=== PATIENT | female | born 1995 | race Two or more races ===

== ENCOUNTER 2016-11-05 09:15 | Inpatient (IN) | payer MEDICAID ==
[2016-11-12 11:25] LABS: ABSOLUTE EOSINOPHILS # (AUTO) 0.1 10^3/uL (0.0-0.6); ABSOLUTE LYMPHOCYTES (AUTO) 2.3 10^3/uL (0.5-4.7); ABSOLUTE MONOCYTES (AUTO) 0.7 10^3/uL (0.1-1.4); ABSOLUTE NEUT (AUTO) 6.7 10^3/uL (1.7-8.2); BASOPHILS % (AUTO) 0.2 % (0-2); EOSINOPHILS % (AUTO) 0.8 % (0-6); HEMATOCRIT 31.7 % (36.0-47.0); HEMOGLOBIN 10.7 g/dL (12.0-15.5); HGB HCT DIFFERENCE 0.4; LYMPHOCYTES % (AUTO) 23.3 % (13-45); MEAN CORPUSCULAR HEMOGLOBIN 30.4 pg (27.0-33.4); MEAN CORPUSCULAR HGB CONC 33.6 g/dL (32.0-36.0); MEAN CORPUSCULAR VOLUME 91 fl (80-97); MONOCYTES % (AUTO) 7.6 % (3-13); RED BLOOD COUNT 3.51 10^6/uL (3.72-5.28); RED CELL DISTRIBUTION WIDTH 13.4 % (11.5-14.0); SEGMENTED NEUTROPHILS % (AUTO) 68.1 % (42-78); WHITE BLOOD COUNT 9.8 10^3/uL (4.0-10.5)
[2016-11-12 11:40] LABS: APPEARANCE,URINE CLOUDY; BILIRUBIN,URINE NEGATIVE (NEGATIVE); CALCIUM OXALATE CRYSTALS,URINE MANY /HPF; GLUCOSE, URINE NEGATIVE (NEGATIVE); KETONES,URINE NEGATIVE (NEGATIVE); LEUKOCYTE ESTERASE,URINE TRACE (NEGATIVE); NITRITE,URINE NEGATIVE (NEGATIVE); PROTEIN,URINE 30 mg/dL (NEGATIVE)
[2016-11-12 11:49] LABS: URINE BARBITURATES SCREEN NEGATIVE; URINE METHADONE SCREEN NEGATIVE; URINE OPIATES LOW NEGATIVE; URINE PHENCYCLIDINE SCREEN NEGATIVE
[2016-11-13] MEDS ORDERED: RINGERS SOLUTION,LACTATED 1,000 ML IV PRN (05:00)
[2016-11-13] MEDS ORDERED: CEFAZOLIN 2 GM/D5W RTU 2 GM/50 ML RTUPB IV PRN (05:00)
[2016-11-13] MEDS ORDERED: LIDOCAINE 0.5% INJ-PF (5 MG/ML) 50 ML SDV SUBCUT PRN (05:00)
[2016-11-13] MEDS ORDERED: LACTATED RINGERS 1000 ML IV PRN (05:00)
[2016-11-13] MEDS ORDERED: OXYTOCIN 10 UNIT/ML VIAL ONE (08:55)
[2016-11-13] MEDS ORDERED: ONDANSETRON HCL INJ/PF 4 MG/2 ML SDV ONE (08:56)
[2016-11-13] MEDS ORDERED: OXYTOCIN/NORMAL SALINE 20 UNIT/1,000 ML RTUINJ ONE ×2 (08:56→11:23)
[2016-11-13] MEDS ORDERED: FENTANYL CITRATE INJ/PF 100 MCG/2 ML AMPUL ONE (08:56)
[2016-11-13] MEDS ORDERED: MORPHINE SULFATE 10 MG/ML INJ ONE (08:56)
[2016-11-13] MEDS ORDERED: MIDAZOLAM 2 MG/2 ML INJ ONE (08:57)
[2016-11-13] MEDS ORDERED: LIDOCAINE 2% INJ-PF (20 MG/ML) 10 ML AMPUL ONE (09:35)
[2016-11-13] MEDS ORDERED: FENTANYL CITRATE INJ/PF 250 MCG/5 ML AMPULE ONE (09:56)
[2016-11-13] MEDS ORDERED: METHYLERGONOVINE MALEATE INJ/PF 0.2 MG/1 ML AMPULE ONE (10:01)
[2016-11-13] MEDS ORDERED: OXYCODONE-ACETAMINOPHEN 5-325 MG TABLET PO PRN ×3 (10:14→13:00)
[2016-11-13] MEDS ORDERED: FENTANYL CITRATE INJ/PF 100 MCG/2 ML AMPUL IV PRN ×3 (10:14)
[2016-11-13] MEDS ORDERED: MEPERIDINE HCL/PF INJ 25 MG/1 ML DISP.SYRIN IV PRN (10:14)
[2016-11-13] MEDS ORDERED: PROMETHAZINE HCL INJ 25 MG/1 ML VIAL IV PRN ×3 (10:14→12:51)
[2016-11-13] MEDS ORDERED: DIPHENHYDRAMINE HCL 50 MG/ML VIAL IV PRN (10:14)
[2016-11-13] MEDS ORDERED: MORPHINE SULFATE 10 MG/ML INJ IV PRN (10:14)
[2016-11-13] MEDS ORDERED: PROPOFOL INJ 200 MG/20 ML VIAL IV ONE (10:33)
[2016-11-13] MEDS ORDERED: ACETAMINOPHEN 100 ML IV ONE (10:38)
[2016-11-13] MEDS ORDERED: PROMETHAZINE HCL INJ 25 MG/1 ML VIAL ONE ×2 (11:21→12:44)
[2016-11-13] MEDS: HYDROMORPHONE HCL INJ/PF 2 MG/ML AMPULE ONE ×2 (11:23→11:38)
[2016-11-13] MEDS ORDERED: OXYTOCIN/NORMAL SALINE 20 UNIT/1,000 ML RTUINJ INJ PRN (12:53)
[2016-11-13] MEDS ORDERED: MEASLES,MUMPS&RUBELLA VACC/PF 0.5 ML VIAL SUBCUT PRN (13:00)
[2016-11-13] MEDS ORDERED: HYDROMORPHONE HCL INJ/PF 2 MG/ML AMPULE IV PRN (13:00)
[2016-11-13] MEDS ORDERED: PROMETHAZINE HCL INJ 25 MG/1 ML VIAL IM PRN (13:00)
[2016-11-13] MEDS ORDERED: DIPH/PERTUSS(ACELL)/TETANUS VAC/PF 0.5 ML SYR (>=10YO) IM PRN (13:00)
[2016-11-13] MEDS ORDERED: ACETAMINOPHEN 325 MG TABLET PO PRN (13:00)
[2016-11-13] MEDS ORDERED: SIMETHICONE 80 MG TAB.CHEW PO PRN (13:00)
[2016-11-13] MEDS ORDERED: SUCCINYLCHOLINE CHLORIDE INJ 200 MG/10 ML VIAL ONE (16:50)
[2016-11-13] MEDS: DOCUSATE SODIUM 100 MG CAPSULE PO SCH (18:11)
[2016-11-13] MEDS: IBUPROFEN 800 MG TABLET PO SCH (18:11)
[2016-11-13] MEDS: OXYCODONE-ACETAMINOPHEN 5-325 MG TABLET PO PRN ×2 (18:47→22:53)
[2016-11-14] MEDS: IBUPROFEN 800 MG TABLET PO SCH ×4 (00:01→17:10)
[2016-11-14] MEDS: OXYCODONE-ACETAMINOPHEN 5-325 MG TABLET PO PRN ×4 (03:30→20:53)
[2016-11-14] MEDS ORDERED: RINGERS SOLUTION,LACTATED 1,000 ML IV SCH (05:00)
[2016-11-14 06:15] LABS: HEMATOCRIT 23.8 % (36.0-47.0); HGB HCT DIFFERENCE -0.4; MEAN CORPUSCULAR VOLUME 91 fl (80-97); RED BLOOD COUNT 2.62 10^6/uL (3.72-5.28); RED CELL DISTRIBUTION WIDTH 13.1 % (11.5-14.0); WHITE BLOOD COUNT 13.3 10^3/uL (4.0-10.5)
[2016-11-14 06:22] LABS: HEMOGLOBIN 7.8 g/dL (12.0-15.5)
[2016-11-14] MEDS: PRENATAL VITAMIN W-O CA NO5/FE FUMARATE/FA CAPSULE PO SCH (09:11)
[2016-11-14] MEDS: DOCUSATE SODIUM 100 MG CAPSULE PO SCH ×2 (09:11→17:10)
--- NOTE | 2016-11-14 10:57 | PDOC PROGRESS REPORT ---
Subjective-OB Subjective: Post Delivery Day: 1 20 year old. Denies any needs at this time, lochia is stable, pain well controlled, voiding without difficulty. passing gas, tolerating diet Physical Exam (OB) Vital Signs: Temp Pulse Resp BP Pulse Ox 98.2 F 93 H 16 120/60 100 11/14/16 08:00 11/14/16 08:00 11/14/16 08:00 11/14/16 08:00 11/14/16 08:00 Intake & Output 11/13/16 11/14/16 11/15/16 06:59 06:59 06:59 Intake Total 4575 700 Output Total 2575 Balance 2000 700 Weight 122.47 kg - PIH/Pre-Eclampsia DTR's: 1 + Clonus: Negative Headache: Absent Epigastric Pain: No Visual Changes: No - Dressing Removed: No Incision: Dressing Closure Type: Venus - Lochia Lochia Amount: Scant < 10 ml Lochia Color: Rubra/Red - Abdomen Description: Tender, Soft, Round Hernia Present: Yes Fundal Description: Firm, Midline Fundal Height: u/u - u/2 Objective-Diagnostic Laboratory: 11/14/16 05:55 11/14/16 05:55 WBC 13.3 H RBC 2.62 L Hgb 7.8 L D Hct 23.8 L MCV 91 MCH 30.0 MCHC 33.0 RDW 13.1 Plt Count 141 L Assessment and Plan(PN) - Assessment and Plan (1) Status post repeat low transverse section Is this a current diagnosis for this admission?: Yes Plan: 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
[2016-11-15] MEDS: IBUPROFEN 800 MG TABLET PO SCH ×3 (00:47→11:12)
[2016-11-15] MEDS: OXYCODONE-ACETAMINOPHEN 5-325 MG TABLET PO PRN ×2 (02:26→09:04)
[2016-11-15 08:07] VITALS: BP 99/72
[2016-11-15] MEDS: DOCUSATE SODIUM 100 MG CAPSULE PO SCH (09:05)
[2016-11-15] MEDS: PRENATAL VITAMIN W-O CA NO5/FE FUMARATE/FA CAPSULE PO SCH (09:05)
--- NOTE | 2016-11-15 09:42 | PDOC DISCHARGE SUMMARY ---
Final Diagnosis Discharge Date: 11/15/16 - Final Diagnosis (1) Status post repeat low transverse section Is this a current diagnosis for this admission?: Yes (2) Acute blood loss anemia Is this a current diagnosis for this admission?: Yes Discharge Data - Discharge Medication Home Medications: Docusate Sodium [Colace 100 mg Capsule] 100 mg PO BID #60 capsule 11/15/16 Ferrous Sulfate 325 mg PO BID #60 tablet 11/15/16 Ibuprofen [Motrin 800 mg Tablet] 800 mg PO Q6 #60 tablet 11/15/16 Oxycodone HCl/Acetaminophen [Percocet 5-325 mg Tablet] 2 tab PO Q4HP PRN #30 tablet 11/15/16 Gestational Age: 39 Reason(s) for Admission: Ceasarean Section-Repeat Procedures: NST Intrapartum Procedure(s): : Low Cervical, Transverse - [place] Data Baby 1 Male at 1 minute: 6 at 5 minutes: 8 Weight: 4500 kg Home with Mother: Yes Complications: No - Diagnosis Test Laboratory: Temp Pulse Resp BP Pulse Ox 98.0 F 92 H 20 99/72 L 95 11/15/16 07:54 11/15/16 07:54 11/15/16 07:54 11/15/16 07:54 11/15/16 07:54 11/12/16 11/12/16 11/14/16 10:50 10:58 05:55 RBC 3.51 L 2.62 L Hgb 10.7 L 7.8 L D Hct 31.7 L 23.8 L Urine Opiates Screen NEGATIVE - Discharge information/Instructions Discharge Activity: Activity As Tolerated, Balance Activity w/Rest, No Lifting Over 10 Pounds, No Lifting/Push/Pulling, Pelvic Rest, No tub bath Discharge Diet: Regular Disposition: HOME, SELF-CARE Follow up with: [facility] in: 1, Weeks
--- NOTE | 2016-12-27 09:53 | OPERATIVE REPORT E ---
Operative Report NAME: PRO HUNT : 1995 AGE: 20Y DATE OF SURGERY: 11/13/2016 ROOM: 226 PREOPERATIVE DIAGNOSES: 1. A 39-week intrauterine . 2. History of section, for repeat. POSTOPERATIVE DIAGNOSES: 1. A 39-week intrauterine . 2. History of section, for repeat. SURGEON: Carter Roman D.O. RACK LOADER: None. PROCEDURE: Repeat low-transverse section. ANESTHESIA: General endotracheal anesthesia. COMPLICATIONS: None. ESTIMATED BLOOD LOSS: 600 mL. PATHOLOGY: Placenta. FINDINGS: 1. A viable female at 9:52 a.m. on 11/13/2016. Apgars 6 at one, 8 at five. 2. Normal-appearing bilateral fallopian tubes and ovaries. PROCEDURE: The patient was taken to the operating room where spinal anesthesia was attempted. It was unsuccessful and so, therefore, the patient was placed under general endotracheal anesthesia. She was placed in a dorsal supine position with a leftward tilt prior to administration of the anesthesia. Once it was done, she was then prepped and draped in a normal sterile fashion. A scalpel was then used to make a Pfannenstiel skin incision. The skin incision was carried down through subcutaneous tissues to the layer of the fascia. The fascia was incised at midline and the fascial incision was then extended bilaterally using the Bovie cautery. The superior fascial edge was grasped with Raphael clamps, elevated, and the rectus muscles dissected off sharply and bluntly. Attention was then turned to the inferior fascial edge, which was grasped with Raphael clamps, elevated and the rectus muscles dissected off sharply and bluntly. The rectus muscles were then in the midline, peritoneum identified, and entered bluntly with the surgeon's hands. A bladder blade was inserted. A scalpel was then used to make a low transverse hysterotomy incision. The was found to be in the cephalic position and delivered through this incision without difficulty. The nose and mouth were suctioned. The cord was clamped and cut. The infant was handed off to the awaiting nurses. The cord blood was obtained. The placenta was then manually removed from the uterus. The uterus was exteriorized and cleared of all clots and debris. The hysterotomy incision was then reapproximated using 2 layers of 1-0 Vicryl in a running locking fashion, following closely with a second layer. Excellent hemostasis was noted. The uterus was then returned to the abdomen. Again, the hysterotomy incision was reinspected and found to have excellent hemostasis. The rectus muscles were then reapproximated using 1-0 Vicryl interrupted sutures. The fascia was then closed using 1-0 Vicryl in a running, non-locking fashion. The subcutaneous space was made hemostatic using Bovie cautery. The skin was then closed with absorbable raad, covered with an OpSite, and then with a pressure dressing. At this point in time, the procedure was terminated. All sponge, lap, and needle counts were correct x2. The patient tolerated the procedure well. The patient was taken to recovery room in stable condition. DICTATING PHYSICIAN: Carter Roman DO [id number] PHY#: [id number] ID: [id number] JOB#: [id number] ACCT: [id number] cc:Carter Roman D.O. >
== END 2016-11-15 13:22 | disposition home or self-care (01) | DRG 765 ==
LOC: 2S 11-13 06:25
PROVIDERS: ADMIT Obstetrics & Gynecology; ATTEND Obstetrics & Gynecology
PROC: 10D00Z1 Extraction of Products of Conception, Low, Open Approach (ICD-10-PCS; principal; 2016-11-13 09:15)
DX: O34.211 Maternal care for low transverse scar from previous cesarean delivery (principal); D62 Acute posthemorrhagic anemia; Z68.42 Body mass index [BMI] 45.0-49.9, adult; O99.214 Obesity complicating childbirth; O90.81 Anemia of the puerperium; E66.9 Obesity, unspecified; Z3A.39 39 weeks gestation of pregnancy; Z37.0 Single live birth
CPT/HCPCS: 1961; 36415; 59025; 80307; 81001; 85025; 85027; 86850; 86900; 86901; J0131; J0330; J1170; J2210; J2250; J2270; J2405; J2550; J2590; J2704; J3010; J3490; J7120